=== PATIENT | female | born 1960 | race Caucasian/White ===

== ENCOUNTER → 2017-05-09 | Day surgery (SDC) | payer OTHER ==
[~2017-05-09] VITALS: Ht 167.6 cm; Wt 85.3 kg
[~2017-05-09] MED LIST: AMITIZA24 MCG PO; CALCIUM MAGNES1 EACH PO; DESYREL100 MG PO; DIOVAN160 MG PO; FLEXERIL10 MG PO; LINZESS145 MCG PO; NABUMETONE750 MG PO; PRILOSEC20 MG PO; THERA-VITE W/ B1 TAB PO; TRAMADOL HCL E200 MG PO; TRIAMTERENE-HC1 EACH PO
== END | disposition disaster alternative care site (69) ==
LOC: GPOC 05-06 13:00 → GEND 06:49 → GPOC 13:00
PROC: 0DJD8ZZ Inspection of Lower Intestinal Tract, Via Natural or Artificial Opening Endoscopic (ICD-10-PCS; principal; 2017-05-09)
DX: Z12.11 Encounter for screening for malignant neoplasm of colon (principal); K63.89 Other specified diseases of intestine; I10 Essential (primary) hypertension; K21.9 Gastro-esophageal reflux disease without esophagitis; Z98.890 Other specified postprocedural states; Z88.0 Allergy status to penicillin; Z88.2 Allergy status to sulfonamides; Z79.899 Other long term (current) drug therapy
CPT/HCPCS: J2001; J7030